=== PATIENT | male | born 1990 | race African-American/Black ===

== ENCOUNTER 2017-04-12 18:07 | Emergency (ER) | payer MEDICAID ==
[~2017-04-12] VITALS: Ht 172.7 cm; Wt 68.0 kg
[2017-04-12] MEDS ORDERED: KETOROLAC 60MG/2ML VIAL IM ONE (23:30)
[2017-04-12] MEDS ORDERED: CYCLOBENZAPRINE 10MG TABLET PO ONE (23:30)
[2017-04-12] MEDS ORDERED: IBUPROFEN 600MG TABLET PO ONE (23:30)
[2017-04-13 00:10] VITALS: BP 118/44
== END 2017-04-13 00:54 | disposition home or self-care (01) ==
LOC: ER 19:32
DX: R51 Headache (principal); M54.2 Cervicalgia; M54.5 Low back pain; V43.52XA Car driver injured in collision with other type car in traffic accident, initial encounter; Y93.89 Activity, other specified; Y99.8 Other external cause status; Y92.410 Unspecified street and highway as the place of occurrence of the external cause
CPT/HCPCS: 96372; 99283; J1885; Z7610